=== PATIENT | female | born 1960 | race Caucasian/White ===

== ENCOUNTER 2017-03-12 21:50 | Emergency (ER) | payer OTHER ==
[2017-03-13] MEDS: HYDROCODONE/APAP (10/325) TAB PO (00:43)
== END 2017-03-13 00:51 | disposition home or self-care (01) ==
LOC: FTE 21:50
DX: K08.89 Other specified disorders of teeth and supporting structures (principal); F17.210 Nicotine dependence, cigarettes, uncomplicated
CPT/HCPCS: 99284; Z7502

== ENCOUNTER 2017-07-28 12:03 | Emergency (ER) | payer OTHER | END 2017-07-28 12:58 | disposition home or self-care (01) | LOC: E/R 12:03 | DX: R21 Rash and other nonspecific skin eruption (principal); Z87.891 Personal history of nicotine dependence | CPT/HCPCS: 99283; Z7502 ==

== ENCOUNTER 2017-08-29 15:25 | Emergency (ER) | payer OTHER ==
[2017-08-29 16:48] LABS: ADD UMIC NO; UR ASCORBIC ACID NEGATIVE (NEGATIVE); UR BILIRUBIN (Dip) NEGATIVE (NEGATIVE); UR BLOOD (Dip) NEGATIVE (NEGATIVE); UR CLARITY CLEAR (CLEAR); UR COLOR STRAW (YELLOW); UR GLUCOSE (Dip) NEGATIVE (NEGATIVE); UR KETONES (Dip) NEGATIVE (NEGATIVE); UR LEUKOCYTE ESTERASE (Dip) NEGATIVE Leu/ul (NEGATIVE); UR NITRITE (Dip) NEGATIVE (NEGATIVE); UR SPECIFIC GRAVITY (Dip) 1.006 (1.003-1.030); UR TOTAL PROTEIN (Dip) NEGATIVE (NEGATIVE); UR UROBILINOGEN (Dip) NEGATIVE (NEGATIVE)
== END 2017-08-29 17:28 | disposition home or self-care (01) ==
LOC: FTE 15:25
DX: K40.90 Unilateral inguinal hernia, without obstruction or gangrene, not specified as recurrent (principal); Z87.891 Personal history of nicotine dependence
CPT/HCPCS: 74176; 81003; 99284-25

== ENCOUNTER 2017-11-05 05:26 | Day surgery (SDC) | payer OTHER ==
[2017-11-05] MEDS: SOD CHLORIDE 0.9% 1,000 ML IV (05:59)
[2017-11-05] MEDS ORDERED: PROPOFOL 20 ML (07:28)
[2017-11-05] MEDS ORDERED: NEOSTIGMINE 3 MG/3 ML SYRINGE (07:28)
[2017-11-05] MEDS ORDERED: ROCURONIUM 50 MG INJ (07:28)
[2017-11-05] MEDS ORDERED: GLYCOPYRROLATE 0.4 MG INJ (07:28)
[2017-11-05] MEDS ORDERED: CEFAZOLIN 1 GM INJ (07:28)
[2017-11-05] MEDS ORDERED: FENTAnyl 50 MCG/ML VIAL (07:29)
[2017-11-05] MEDS ORDERED: ONDANSETRON 4 MG INJ (07:29)
[2017-11-05] MEDS ORDERED: MIDAZOLAM 1 MG/ML 2 ML INJ (07:29)
[2017-11-05] MEDS ORDERED: DEXAMETHASONE 4 MG/ML 1 ML INJ (07:29)
[2017-11-05] MEDS ORDERED: ROPIVACAINE 0.5 % 30 ML VIAL (07:31)
[2017-11-05] MEDS: CEFAZOLIN 2 GM/50 ML (PMX) 50 ML IVPB (07:41)
[2017-11-05] MEDS: POLYMYXIN/BACITRACIN 1L IRRIG IRR (07:58)
[2017-11-05] MEDS ORDERED: DIPHENHYDRAMINE 50 MG INJ IV (08:00)
[2017-11-05] MEDS ORDERED: FENTAnyl 50 MCG/ML VIAL IV ×2 (08:00)
[2017-11-05] MEDS ORDERED: EPHEDrine SULFATE 50 MG/5 ML SYG IV (08:00)
[2017-11-05] MEDS ORDERED: IPRATROPIUM (NEB) 0.5 MG/2.5 ML AMP HHN (08:00)
[2017-11-05] MEDS ORDERED: LABETALOL HCL 20MG INJ IV (08:00)
[2017-11-05] MEDS ORDERED: MEPERIDINE 25 MG INJ IV (08:00)
[2017-11-05] MEDS ORDERED: TRIMETHOBENZAMIDE 100 MG/ML VIAL IM (08:00)
[2017-11-05] MEDS ORDERED: HYDROmorphONE 1 MG/5 ML IV SYRINGE IV ×2 (08:00)
[2017-11-05] MEDS ORDERED: hydrALAzine 20 MG INJ IV (08:00)
[2017-11-05] MEDS ORDERED: OXYCODONE/ACETAMINOPHEN (5/325) TAB PO ×2 (08:00)
[2017-11-05] MEDS ORDERED: ALBUTEROL 0.083% (NEB) 2.5 MG/3 ML AMP HHN (08:00)
[2017-11-05] MEDS ORDERED: MIDAZOLAM 1 MG/ML 2 ML INJ IV (08:00)
[2017-11-05] MEDS ORDERED: SUGAMMADEX SODIUM 200 MG/2 ML VIAL IV (08:20)
[2017-11-05] MEDS: FENTAnyl 50 MCG/ML VIAL IV (08:54)
[2017-11-05] MEDS: ONDANSETRON 4 MG INJ IV (08:54)
[2017-11-05] MEDS: HYDROmorphONE 1 MG/5 ML IV SYRINGE IV (09:26)
[2017-11-05] MEDS: HYDROCODONE/APAP (5/325) TAB PO (10:38)
== END 2017-11-05 10:45 | disposition home or self-care (01) ==
LOC: SDS 05:26
DX: K40.30 Unilateral inguinal hernia, with obstruction, without gangrene, not specified as recurrent (principal); F41.8 Other specified anxiety disorders
CPT/HCPCS: 49507